=== PATIENT | male | born 1965 | race Two or more races ===

== ENCOUNTER 2019-02-12 20:24 | Emergency (ER) | payer OTHER ==
--- NOTE | 2019-02-12 21:18 | ED ---
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 He has occasional asthma symptoms 1-2 times per year but vanessant had a serious incident in 10 years. He splits time between [facility] and [place] and noticed some wheezing in the last 4 weeks but only in his home in [place]. 4 days WELLNESS ASSISTANT he experienced serious asthma symptoms but the day after he was feeling better. He took ephedrine after the incident but vanessant owned an inhaler in 12 years. 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 Pain severity is rated a 0/10. Symptoms are aggravated by being in [place] home and alleviated sometimes with Primatene and ephedrine. He also reports some coughing with occasional phlegm and SOB. He has Hx of asthma. - History of Current Complaint Chief Complaint: EDShortnessOfBreath Stated Complaint: DIFFICULTY BREATHING PER PT Time Seen by Provider: 02/12/19 21:06 Hx Obtained From: Patient Onset/Duration: Gradual Onset, Lasting Weeks, Still Present Timing: Weeks Initial Severity: Mild Current Severity: None Pain Intensity: 0 Pain Scale Used: 0-10 Numeric Location/Character: Wheezing Aggravating Symptoms: Nothing Alleviating Symptoms: Other - Ephedrine and Primatene Associated Signs and Symptoms: Positive: Shortness of Breath, Other - pos - coughing with occasional phlegm, wheezing, fatigue - Allergy/Home Medications Allergies/Adverse Reactions: Allergies Allergy/AdvReac Type Severity Reaction Status Date / Time No Known Allergies Allergy Verified 02/12/19 20:30 Home Medications: Home Medications NK [No Home Medications Reported] 02/12/19 [History Confirmed 02/12/19] PMH/Surg Hx/FS Hx/Imm Hx Respiratory History: Reports: Hx Asthma Sensory History: Denies: Hx Legally Blind, Hx Deafness Opthamlomology History: Denies: Hx Legally Blind EENT History: Denies: Hx Deafness - Surgical History Surgical History: None Surgery Procedure, Year, and Place: none Infectious Disease History: No Infectious Disease History: Denies: Traveled Outside the [place] in Last 30 Days - Family History Known Family History: Negative: Renal Disease - Social History Alcohol Use: Occasionally Substance Use Type: Reports: None Smoking Status (MU): Never Smoked Tobacco Review of Systems Positive: Fatigue Positive: Shortness Of Breath, Cough, Other - pos - wheezing All Other Systems Reviewed And Are Negative: Yes Physical Exam - Summary Physical Exam Summary: General: Well-developed, Well-nourished male. No acute distress. HEENT: Normocephalic, Atraumatic. Eyes: Conjuctiva normal, PERRL. Ears: TMs within normal limits. Nares: (-) discharge, (-) erythema. Oropharynx: Clear, mucous membranes moist, (-) exudates. Neck: Soft, FROM, (-) lymphadenopathy, (-) thyromegaly, (-) JVD. Cardiovascular: Normal sinus rhythm, (-) murmur. Lungs: Prolonged expiratory with wheezing, fair air exchanged, forced expiration , (-) rales, (-) rhonchi. Abdomen: Soft, non-tender, non-distended, (-) organomegaly, normal bowel sounds. Back: (-) CVA tenderness Extremities: No edema. Skin: Warm, dry, (-) rash. Neuro: Alert and oriented x3, no focal deficits. Psychiatric: Mood normal, affect normal. Triage Information Reviewed: Yes Vital Signs On Initial Exam: Initial Vitals Temp Pulse Resp BP Pulse Ox 97.1 F 81 15 142/102 97 02/12/19 20:25 02/12/19 20:25 02/12/19 20:25 02/12/19 20:25 02/12/19 20:25 Vital Signs Reviewed: Yes Procedures - Sedation Patient Received Moderate/Deep Sedation with Procedure: No Diagnostics - Vital Signs Vital Signs Temp Pulse Resp BP Pulse Ox 02/12/19 21:05 86 17 142/93 95 02/12/19 21:04 22 02/12/19 20:25 97.1 F 81 15 142/102 97 - Laboratory Lab Statement: Any lab studies that have been ordered have been reviewed, and results considered in the medical decision making process. 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 No test or imaging results to report. In the ED course pt was given 2 puffs albuterol via inhaler. Final Dx is Asthma. Pt will be discharged home with PCP follow up. Pt is agreeable with this plan. - Diagnoses Provider Diagnoses: Asthma Discharge ED - Sign-Out/Discharge Documenting (check all that apply): Patient Departure - discharge - Discharge Plan Condition: Stable Disposition: HOME Patient Education Materials: Asthma (ED) Referrals: [facility] [Outside] - 3 Days Additional Instructions: Please take 2 puffs of your albuterol inhaler every four hours or as needed for SOB or wheezing. Please follow up with your primary care physician within three days. Please return to ED for any new or worsening symptoms. - Billing Disposition and Condition Condition: STABLE Disposition: Home - Attestation Statements Document Initiated by Scribe: Yes Documenting Scribe: Manuel Stone Provider For Whom [employer] is Documenting (Include Credential): Sophie Hager MD Scribe Attestation: IManuel, scribed for Sophie Hager MD on 02/13/19 at 0331. Scribe Documentation Reviewed: Yes Provider Attestation: The documentation as recorded by the Manuel roper accurately reflects the service I personally performed and the decisions made by me, Sophie Hager MD Status of Scribe Document: Viewed
[2019-02-12] MEDS ORDERED: Albuterol HFA INHALER* 8 gm MDI INH ONE (21:20)
[2019-02-12 23:00] VITALS: BP 129/80
== END 2019-02-12 23:00 | disposition home or self-care (01) ==
LOC: ED 20:24
DX: J45.909 Unspecified asthma, uncomplicated (principal); R06.02 Shortness of breath; R05 Cough
CPT/HCPCS: 99283; A9270-GY